=== PATIENT | female | born 1985 | race Caucasian/White ===

== ENCOUNTER 2021-02-27 08:54 | Inpatient (IN) | payer OTHER ==
[~2021-02-27] VITALS: Ht 165.1 cm; Wt 115.8 kg
[~2021-02-27 08:54] MED LIST: BUPIVACAINE/PF 0.5% ONE; EPINEPHRINE 1 MG/ML, 1ML ONE
[2021-02-27] MEDS ORDERED: LACTATED RINGERS 1,000 ML IV SCH (12:00)
[2021-02-27 12:05] VITALS: BP 156/103
[2021-02-27] MEDS ORDERED: ACET-1600 PO (12:05)
[2021-02-27] MEDS ORDERED: ALBU90AE INH (12:05)
[2021-02-27] MEDS ORDERED: SCOPOLAMINE 1MG PATCH TD ONE ×2 (12:19→12:30)
[2021-02-27] MEDS ORDERED: CHLORHEXIDINE 15 ML UDC ONE (12:19)
[2021-02-27] MEDS ORDERED: CHLORHEXIDINE 15 ML UDC PO ONE (12:30)
[2021-02-27] MEDS ORDERED: ACETAMINOPHEN 100 ML IVPB ONE (12:30)
[2021-02-27 12:43] LABS: BASOPHILS % (AUTO) 1 % (0-1); EOSINOPHILS % (AUTO) 2 % (1-7); LYMPHOCYTES % (AUTO) 23 % (22-44); MEAN CORPUSCULAR HEMOGLOBIN 30.1 pg (27.0-34.8); MEAN CORPUSCULAR HGB CONC 34.3 g/dL (32.4-35.8); MEAN PLATELET VOLUME 7.5 fL (7.4-10.4); MONOCYTES % (AUTO) 6 % (2-9); NEUTROPHILS % (AUTO) 68 % (42-75); PLATELET COUNT 405 x10^3/uL (130-400); RED BLOOD COUNT 5.06 x10^6/uL (3.82-5.3)
[2021-02-27 12:51] LABS: ANION GAP 7 mmol/L (5-15); CALCIUM 9.2 mg/dL (8.5-10.1); CHLORIDE 110 mmol/L (98-107); CHOLESTEROL, TOTAL 167 mg/dL (140-239); TOTAL IRON BINDING CAPACITY 326 mcg/dL (250-450)
[2021-02-27 13:18] LABS: % IRON SATURATION 14 % (20-55); ALANINE AMINOTRANSFERASE 37 U/L (12-78); ALKALINE PHOSPHATASE 48 U/L (45-117); BILIRUBIN,TOTAL 0.8 mg/dL (0.2-1.0); CHOL/HDL RATIO 3.6; CREATININE 0.69 mg/dL (0.55-1.02); HDL CHOL % 28 % (28-40); HDL CHOLESTEROL (DIRECT) 46 mg/dL (40-60); IRON LEVEL 47 mcg/dL (50-170); LDL CHOLESTEROL,CALCULATED 100 mg/dL (54-169); LDL/HDL RATIO 2.2 (0.5-3.0); PREALBUMIN 21.1 mg/dL (20.0-40.0); TOTAL PROTEIN 7.9 g/dL (6.4-8.2); TRIGLYCERIDES 103 mg/dL (50-200); VLDL CHOLESTEROL 21 mg/dL (0-25)
[2021-02-27] MEDS ORDERED: FENTANYL PF 250 MCG/5ML ONE (14:13)
[2021-02-27] MEDS ORDERED: MIDAZOLAM 1 MG/ML, 2ML ONE (14:13)
[2021-02-27] MEDS ORDERED: PROMETHAZINE 25 MG/ML, 1ML IVPush PRN (14:30)
[2021-02-27] MEDS ORDERED: EPHEDRINE 50 MG/ML, 1ML IVPush PRN (14:30)
[2021-02-27] MEDS ORDERED: DIAZEPAM 5 MG/ML, 2ML IVPush PRN (14:30)
[2021-02-27] MEDS ORDERED: EPHEDRINE 50 MG/ML, 1ML IM PRN (14:30)
[2021-02-27] MEDS ORDERED: MEPERIDINE/PF 25MG/0.5ML IVPush PRN (14:30)
[2021-02-27] MEDS ORDERED: morphine SULFATE 10 MG/ML, 1ML IVPush PRN ×2 (14:30→16:00)
[2021-02-27] MEDS ORDERED: OXYcodone 5 MG/5 ML ORAL.SOL UDC PO PRN (14:30)
[2021-02-27] MEDS ORDERED: LABETALOL 5MG/ML, 20ML IV PRN (14:30)
[2021-02-27] MEDS ORDERED: METHOCARBAMOL 1,000 MG in DEXTROSE 5% 100 ML IV PRN (14:30)
[2021-02-27] MEDS ORDERED: ONDANSETRON 2MG/ML, 2ML IVPush PRN ×2 (14:30→16:00)
[2021-02-27] MEDS ORDERED: DIPHENHYDRAMINE 50 MG/ML, 1ML IVPush PRN (14:30)
[2021-02-27] MEDS ORDERED: PROPOFOL 100 ML ONE (14:46)
[2021-02-27] MEDS ORDERED: ROCURONIUM 10 MG/ML,10ML ONE (14:59)
[2021-02-27] MEDS ORDERED: CEFAZOLIN 1,000 MG ONE (14:59)
[2021-02-27] MEDS ORDERED: DEXAMETHASONE 4 MG/ML, 5ML ONE (15:45)
[2021-02-27] MEDS ORDERED: PROPOFOL 10 MG/ML, 20ML ONE (15:45)
[2021-02-27] MEDS ORDERED: SUCCINYLCHOLINE 20 MG/ML, 10ML ONE (15:45)
[2021-02-27] MEDS ORDERED: ONDANSETRON 2MG/ML, 2ML ONE (15:45)
[2021-02-27] MEDS ORDERED: PROMETHAZINE 25 MG/ML, 1ML IM PRN (16:00)
[2021-02-27] MEDS ORDERED: PROMETHAZINE 12.5 MG SUPP PR PRN (16:00)
[2021-02-27] MEDS ORDERED: DIPHENHYDRAMINE 50 MG/ML, 1ML IV PRN (16:00)
[2021-02-27] MEDS ORDERED: ENALAPRILAT 1.25 MG/ML, 2ML IV PRN (16:00)
[2021-02-27] MEDS ORDERED: LORazepam 2 MG/ML, 1ML IV PRN (16:00)
[2021-02-27] MEDS ORDERED: METHOCARBAMOL 1,000 MG in DEXTROSE 5% 100 ML IV ONE (16:00)
[2021-02-27] MEDS ORDERED: ALBUTEROL SULFATE 2.5 MG/3 ML NPPB PRN (16:00)
[2021-02-27] MEDS ORDERED: hydrALAzine 20 MG/ML, 1ML IVPush PRN (16:00)
[2021-02-27] MEDS ORDERED: PHENOL THROAT SPRAY BOTTLE MM PRN (16:00)
[2021-02-27] MEDS ORDERED: FENTANYL PF 100 MCG/2ML ONE (16:04)
[2021-02-27] MEDS: FENTANYL PF 100 MCG/2ML IV PRN ×2 (16:07→16:12)
[2021-02-27] MEDS ORDERED: HYDROmorphone 2 MG/ML, 1ML ONE (16:07)
[2021-02-27] MEDS ORDERED: HYDR15SO3 PO (16:11)
[2021-02-27] MEDS: HYDROmorphone 1 MG/ML, 1ML INJ IVPush PRN ×2 (16:35→16:40)
[2021-02-27 19:14] VITALS: BP 145/86
[2021-02-27] MEDS: LACTATED RINGERS 1,000 ML IV SCH (20:30)
[2021-02-27] MEDS: ACETAMINOPHEN 100 ML IVPB SCH (21:44)
[2021-02-27] MEDS: FAMOTIDINE 20 MG/2 ML IVPush SCH (21:45)
[2021-02-27 21:52] VITALS: BP 126/79
[2021-02-27 23:26] VITALS: BP 125/76
[2021-02-28] MEDS ORDERED: HYDROcodone/APAP 7.5-325MG/15ML UDC PO PRN
[2021-02-28] MEDS: LACTATED RINGERS 1,000 ML IV SCH (03:10)
[2021-02-28 03:34] VITALS: BP 136/84
[2021-02-28] MEDS: ACETAMINOPHEN 100 ML IVPB SCH (03:44)
[2021-02-28] MEDS ORDERED: LACTATED RINGERS 1,000 ML IV SCH (05:00)
[2021-02-28] MEDS: KETOROLAC 30 MG/1 ML IVPush PRN ×2 (05:23→11:22)
[2021-02-28 05:29] LABS: BASOPHILS % (AUTO) 0 % (0-1); EOSINOPHILS % (AUTO) 0 % (1-7); LYMPHOCYTES % (AUTO) 13 % (22-44); MEAN CORPUSCULAR HEMOGLOBIN 30.1 pg (27.0-34.8); MEAN CORPUSCULAR HGB CONC 34.6 g/dL (32.4-35.8); MEAN PLATELET VOLUME 7.9 fL (7.4-10.4); MONOCYTES % (AUTO) 7 % (2-9); NEUTROPHILS % (AUTO) 80 % (42-75); PLATELET COUNT 408 x10^3/uL (130-400); RED BLOOD COUNT 4.74 x10^6/uL (3.82-5.3); RED CELL DISTRIBUTION WIDTH 13.2 % (9.6-15.2)
[2021-02-28 05:36] LABS: ALBUMIN 3.3 g/dL (3.4-5.0); ANION GAP 8 mmol/L (5-15); CALCIUM 8.5 mg/dL (8.5-10.1); CHLORIDE 106 mmol/L (98-107); CREATININE 0.51 mg/dL (0.55-1.02)
[2021-02-28] MEDS: FAMOTIDINE 20 MG/2 ML IVPush SCH (08:29)
[2021-02-28 08:38] VITALS: BP 148/86
[2021-02-28] MEDS ORDERED: ENOXAPARIN 40 MG/0.4 ML SQ SCH (09:00)
[2021-02-28 11:21] VITALS: BP 135/85
== END 2021-02-28 11:50 | disposition home or self-care (01) | DRG 621 ==
LOC: ORIP 11:09 → EDSTATUS 12:30 → 4NE 16:48 → DCLOUNGE 02-28 11:38
PROVIDERS: ADMIT Thoracic Surgery (Cardiothoracic Vascular Surgery); ATTEND Thoracic Surgery (Cardiothoracic Vascular Surgery)
PROC: 0DB64Z3 Excision of Stomach, Percutaneous Endoscopic Approach, Vertical (ICD-10-PCS; principal; 2021-02-27 12:30)
DX: E66.01 Morbid (severe) obesity due to excess calories (principal); J45.909 Unspecified asthma, uncomplicated; Z20.822 Contact with and (suspected) exposure to COVID-19; Z79.899 Other long term (current) drug therapy; Z68.41 Body mass index [BMI] 40.0-44.9, adult
CPT/HCPCS: 36415; S0020; 71045; 80048; 80053; 80061; 81025; 82040; 82306; 82607; 83540; 83550; 83970; 84134; 84425; 85025; 87635; 93005; G0378; J0131; J0171; J0690; J1100; J1170; J1650; J1885; J2250; J2405; J2704; J3010; J0330; J2800; J7120